=== PATIENT | female | born 1995 | race Caucasian/White ===

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

== ENCOUNTER 2018-04-18 22:28 | Emergency (ER) | payer OTHER ==
--- OUTSIDE RECORDS SUMMARY | 2018-04-18 22:47 | XMS REPORT ---
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 015434059 unspecified Problem Oligomenorrhea, N91.5 Active 97574766 unspecified ALLERGIES No Known Allergies ENCOUNTERS Encounter Location Date Diagnosis [address] Feb, [address] [id number] [facility] Apr, [place], [place] [id number] [address] Apr, Low grade squamous [address], intraepithelial lesion [place] [id number] cytologic smear of cervix (LGSIL) R87.[address] Mar, Inflammatory disease of [address], cervix uteri N72 and Mild [place] [address] cervical dysplasia N87.0 [facility] [address] Feb, [place], [place] [id number] [address] Feb, Encounter for [address], gynecological examination [place] [id number] (general) (routine) with abnormal findings Z01.411 ; Encounter for screening for malignant neoplasm of cervix Z12.4 ; Encounter for surveillance of vaginal ring hormonal contraceptive device Z30.44 ; Encounter for screening for infections with a predominantly sexual mode of transmission Z11.3 and Inflammatory disease of cervix uteri N72 [facility] Feb, Encounter for surveillance OBGYN [facility], of vaginal ring hormonal [place] [id number] contraceptive device Z30.44 [facility] Jan, Encounter for surveillance OBGYN [facility], of vaginal ring hormonal [place] [id number] contraceptive device Z30.44 [facility] May, OBGYN [place], [place] [id number] [facility] Feb, O[place] [id number] [address] Jan, Encounter for OBGYN [address] [place], gynecological examination [place] [id number] (general) (routine) without abnormal findings Z01.419 ; Encounter for surveillance of vaginal ring hormonal contraceptive device Z30.44 and Nontoxic goiter, unspecified E04.9 [facility] Jan, Encounter for other OBN [facility], general counseling and [place] [id number] advice on contraception Z30.09 [facility] Jan, Encounter for OBN [facility], gynecological examination [place] [id number] (general) (routine) without abnormal findings Z01.419 and Encounter for other general counseling and advice on contraception Z30.09 [facility] 103 Dec, [facility] and [place] [id number] advice on contraception Z30.09 [facility] Dec, [place]BGYN [place] [id number] [facility] [facility] May, Oligomenorrhea, OBGYN [address] [place], unspecified N91.5 [place] [id number] [facility] Apr, [place] [id number] [facility] Mar, [place] [id number] [facility] Jan, Oligomenorrhea [address] [facility] [address] [place] [id number] [facility] Dec, Oligomenorrhea [address] [facility] [address] [place] [id number] [facility] Dec, Oligomenorrhea 626.1 [place] [id number] [facility] Nov, [address] [id number] [facility] Nov, [place] [id number] [facility] Nov, ROUTINE SAW RUNNER EXAMINATION [facility] [address] [place] [address], V72.31 ; STD Screen V74.5 [place] [id number] and Oligomenorrhea 626.1 IMMUNIZATIONS No Known Immunizations SOCIAL HISTORY Never Assessed REASON FOR REFERRAL FUNCTIONAL STATUS PLAN OF CARE Activity Details Follow Up Colpo f/u in 2 wks w/Bárbara. Reason: Pending Test Gynecologic Biopsy VITAL SIGNS Height 63.5 in 2018-04-16 Weight 112 lbs 2018-04-16 BMI 19.53 kg/m2 2018-04-16 Blood pressure systolic 110 mm Hg 2018-04-16 Blood pressure diastolic 70 mm Hg 2018-04-16 MEDICATIONS Medication Instructions Dosage Frequency Start End Duration Status Date Date multivitamin orally once a day 1 tab(s) 24h Active Vitamin B Complex with C and Folic Acid Vitamin C 250 mg orally once a day 1 tab(s) 24h Active NuvaRing 0.015 intravaginally Feb, dose(s) Active mg-0.12 mg/24 every 4 weeks 2018 hours Calcium 500+D 500 chewed 2 times a 1 tab(s) 12h Active mg-400 intl units day Vitamin D3 400 orally once a day 2 tab(s) 24h Active intl units NuvaRing 0.015 INSERT 1 28 Active mg-0.12 mg/24 RING hours VAGINALLY , AND LEAVE IN FOR 3 WEEKS. REMOVE FOR ONE WEEK. antihistamine Active doxycycline orally 2 times a 1 tab(s) 12h 30 Nov, 10 day(s) Active hyclate 100 mg day 2017 PROCEDURES Procedure Date Ordered Result Body Site COLPO BX & ECC Apr 16, 2018 URINE TEST Apr 16, 2018 RESULTS Name Result Date Reference Range URINE TEST REASON FOR VISIT cervical colpo Insurance Providers [facility] Member Patient Patient Patient Patient Patient Subscriber Subscriber Subscriber Group Insurance Plan Plan Plan Plan ID Relationship Address Phone Name Date of ID Name Date of No Type Insurance Insurance Insurance Coverage to Subscriber Address Phone Name Dates [employer] [phone] [employer] self Riddhi [id number] [phone] [facility] [address]150 [phone] MEDICAL (GENERAL) HISTORY Type Description Date Medical History concussion 06/21 Surgical History right shoulder surgery x 2 2011
--- OUTSIDE RECORDS SUMMARY | 2018-04-18 22:48 | XMS REPORT ---
:1995 Author Organization [facility] Address [address] 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 658281600 unspecified Problem Oligomenorrhea, N91.5 Active 43563864 unspecified ALLERGIES No Known Allergies ENCOUNTERS Encounter Location Date Diagnosis [address] Feb, [address] [id number] [address] Apr, [address] [id number] [address] Mar, Inflammatory disease of [address], cervix uteri N72 and Mild [place] [id number] cervical dysplasia N87.0 [facility] 103 Feb, [place], [place] [id number] [address] Feb, Encounter for [address], gynecological examination [place] [id number] (general) (routine) with abnormal findings Z01.411 ; Encounter for screening for malignant neoplasm of cervix Z12.4 ; Encounter for surveillance of vaginal ring hormonal contraceptive device Z30.44 ; Encounter for screening for infections with a predominantly sexual mode of transmission Z11.3 and Inflammatory disease of cervix uteri N72 [facility] Feb, Encounter for surveillance OBGYN [facility], of vaginal ring hormonal [place] [id number] contraceptive device Z30.44 [facility] Jan, Encounter for surveillance OBGYN [facility], of vaginal ring hormonal [place] [id number] contraceptive device Z30.44 [facility] May, OBGYN [place] [id number] [facility] Feb, [place] [id number] [facility] Jan, [facility] [address] [place], gynecological examination [place] [id number] (general) (routine) without abnormal findings Z01.419 ; Encounter for surveillance of vaginal ring hormonal contraceptive device Z30.44 and Nontoxic goiter, unspecified E04.9 [facility] Jan, Encounter for other OBGYN [facility], general counseling and [place] [phone] advice on contraception Z30.09 [facility] Jan, Encounter for OBGYN [facility], gynecological examination [place] [id number] (general) (routine) without abnormal findings Z01.419 and Encounter for other general counseling and advice on contraception Z30.09 [facility] 103 Dec, Encounter for other OBGYN [facility], general counseling and [place] [phone] advice on contraception Z30.09 [facility] 103 Dec, OBGYN [place] [id number] [facility] May, Oligomenorrhea, OBGYN [address] [place], unspecified N91.5 [place] [id number] [facility] [facility] Apr, [place], [place] [id number] [facility] Mar, [place] [id number] [facility] Jan, [facility] [address] [facility] [address] [place] [address] [id number] [address] Dec, Oligomenorrhea [address] [place] [id number] [facility] 103 Dec, Oligomenorrhea 626.1 [place] [id number] [address] Nov, OBN [address] [place] [id number] [facility] 103 Nov, [place] [id number] [address] Nov, ROUTINE BULK FOLDER EXAMINATION [facility] Road [address] [place] [address], V72.31 ; STD Screen V74.5 [place] [id number] and Oligomenorrhea 626.1 IMMUNIZATIONS No Known Immunizations SOCIAL HISTORY Never Assessed REASON FOR REFERRAL FUNCTIONAL STATUS PLAN OF CARE Activity Details Follow Up cervical colpo for LSIL & friable Reason: VITAL SIGNS Height 63.5 in 2018-04-03 Weight 112 lbs 2018-04-03 BMI 19.53 kg/m2 2018-04-03 Blood pressure systolic 100 mm Hg 2018-04-03 Blood pressure diastolic 50 mm Hg 2018-04-03 MEDICATIONS Medication Instructions Dosage Frequency Start End Duration Status Date Date multivitamin orally once a day 1 tab(s) 24h Active Vitamin B Complex with C and Folic Acid Vitamin C 250 mg orally once a day 1 tab(s) 24h Active NuvaRing 0.015 intravaginally 1 ea 18 Feb, dose(s) Active mg-0.12 mg/24 every 4 weeks 2018 hours NuvaRing 0.015 INSERT 1 28 Active mg-0.12 mg/24 RING hours VAGINALLY , AND LEAVE IN FOR 3 WEEKS. REMOVE FOR ONE WEEK. doxycycline orally 2 times a 1 tab(s) 12h 30 Mar, day(s) Active hyclate 100 mg day 2017 Vitamin D3 400 orally once a day 2 tab(s) 24h Active intl units Calcium 500+D 500 chewed 2 times a 1 tab(s) 12h Active mg-400 intl units day antihistamine Active PROCEDURES No Known procedures RESULTS No Results REASON FOR VISIT Folow- up Insurance Providers [facility] Health Member Patient Patient Patient Patient Patient Subscriber Subscriber Subscriber Group Insurance Plan Plan Plan Plan ID Relationship Address Phone Name Date of ID Name Date of No Type Insurance Insurance Insurance Coverage to Subscriber Address Phone Name Dates [employer] [phone] [employer] self Riddhi [id number] [address] [phone] [facility] [address]150 [phone] MEDICAL (GENERAL) HISTORY Type Description Date Medical History concussion 06/21 Surgical History right shoulder surgery x 2 2011
[2018-04-18] MEDS ORDERED: Ferric Subsulfate* 8 ML BTL TOPICAL ONE (22:52)
--- NOTE | 2018-04-19 01:04 | ED ---
GI/ HPI - HPI Summary HPI Summary: Patient complains of persistent progressive vaginal bleeding after cervical biopsy 2 days ago. Patient states she called her COMMERCIAL UNDERWRITER and they advised her to come to the ED. Denies trauma, any pain, other injury or symptoms. Patient's is sexually active, uses control. Last menstrual period April 06-. Denies any other pain, - History of Current Complaint Chief Complaint: EDOBProblems Time Seen by Provider: 04/18/18 22:55 Stated Complaint: VAGINAL BLEEDING Hx Obtained From: Patient Onset/Duration: Started Days Ago Timing: Intermittent Severity: Moderate Current Severity: None Vaginal Bleeding Description: Brownish-Red Pain Intensity: 0 - Allergy/Home Medications Allergies/Adverse Reactions: Allergies Allergy/AdvReac Type Severity Reaction Status Date / Time Opioids - Morphine Analogues Allergy Tachycardia Verified 04/18/18 22:37 Home Medications: Home Medications L.acidoph,Paracasei, B.lactis [Probiotic] 1 cap PO DAILY 04/18/18 [History Confirmed 04/18/18] [place]-3S/Dha/Epa/Fish Oil [Fish Oil 1,200 mg Softgel] 1 cap PO DAILY 04/18/18 [ History Confirmed 04/18/18] PMH/Surg Hx/FS Hx/Imm Hx Endocrine/Hematology History: Denies: Hx Anticoagulant Therapy, Hx Diabetes, Hx Thyroid Disease Cardiovascular History: Denies: Hx Cardiac Arrest History: Denies: Hx Dialysis Sensory History: Denies: Hx Contacts or Glasses, Hx Hearing Aid Opthamlomology History: Denies: Hx Contacts or Glasses Neurological History: Denies: Hx CVA - Surgical History Surgery Procedure, Year, and Place: RIGHT SHOULDER SURGERY-[facility] Hx Anesthesia Reactions: Yes - WHILE IN SURGERY ALLERGIC REACTION TO PCN Infectious Disease History: No Infectious Disease History: Denies: Traveled Outside the [place] in Last 30 Days - Family History Known Family History: Positive: None - Social History Alcohol Use: None Substance Use Type: Reports: None Smoking Status (MU): Never Smoked Tobacco Review of Systems Constitutional: Negative Eyes: Negative ENT: Negative Cardiovascular: Negative Respiratory: Negative Gastrointestinal: Negative Genitourinary: Negative Musculoskeletal: Negative Skin: Negative Neurological: Negative Psychological: Normal All Other Systems Reviewed And Are Negative: Yes Physical Exam Triage Information Reviewed: Yes Vital Signs On Initial Exam: Initial Vitals Temp Pulse Resp BP Pulse Ox 98.3 F 70 16 110/64 100 04/18/18 22:33 04/18/18 22:33 04/18/18 22:33 04/18/18 22:33 04/18/18 22:33 Vital Signs Reviewed: Yes Appearance: Positive: Well-Appearing Skin: Positive: Warm Head/Face: Positive: Normal Head/Face Inspection Eyes: Positive: Normal Neck: Positive: Supple Respiratory/Lung Sounds: Positive: Clear to Auscultation Cardiovascular: Positive: Normal Abdomen Description: Positive: Nontender Pelvic Exam: Positive: External Exam Normal, No Cerv. Motion Tender, No Masses, Active Bleeding - Patient bleeding from os. Os normal size., Blood. Negative: Cervicitis, Discharge, Lesions, Mass, Tender w/ Cervical Motion, Tender Adnexa, Tender Uterus Musculoskeletal: Positive: Normal Neurological: Positive: Normal Psychiatric: Positive: Normal AVPU Assessment: Alert - [place] Coma Scale Best Eye Response: 4 - Spontaneous Best Motor Response: 6 - Obeys Commands Best Verbal Response: 5 - Oriented Coma Scale Total: 15 Diagnostics - Vital Signs Vital Signs Temp Pulse Resp BP Pulse Ox 04/18/18 22:33 98.3 F 70 16 110/64 100 - Laboratory Lab Statement: Any lab studies that have been ordered have been reviewed, and results considered in the medical decision making process. GIGU Course/Dx - Course Course Of Treatment: Patient complains of persistent progressive vaginal bleeding after cervical biopsy 2 days ago. Patient states she has been bleeding intermittently from her cervix, and biopsy was to help determine why. Patient has tested negative for HPV and STDs. Patient states she called her OB/ OPERATIONS OFFICER and they advised her to come to the ED. Denies trauma, any pain, other injury or symptoms. Patient's is sexually active, uses control. Last menstrual period April 06-. Denies any other pain, injury or symptoms. Medical history is none. Bleed on cervix was diminished with application of Monsel's. Patient was advised she would have some bleeding though diminished and to follow-up with her COMMERCIAL UNDERWRITER on Friday. Patient and mom understand and approve of plan. - Diagnoses Provider Diagnoses: Vaginal bleeding Discharge - Sign-Out/Discharge Documenting (check all that apply): Patient Departure - Discharge Plan Condition: Stable Disposition: HOME Patient Education Materials: Dysfunctional Uterine Bleeding (ED) Referrals: Aydin Sanchez MD [Primary Care Provider] - Additional Instructions: Follow-up with your COMMERCIAL UNDERWRITER on Friday. Return to the ED for any new or worsening symptoms. - Billing Disposition and Condition Condition: STABLE Disposition: Home
[2018-04-19 01:15] VITALS: BP 97/62
== END 2018-04-19 01:14 | disposition home or self-care (01) ==
LOC: ED 22:28
DX: N93.9 Abnormal uterine and vaginal bleeding, unspecified (principal); Z88.5 Allergy status to narcotic agent
CPT/HCPCS: 99282